=== PATIENT | female | born 1980 ===

== ENCOUNTER 2020-04-27 12:55 | Emergency (ER) | payer OTHER, SELFPAY ==
--- NOTE | 2020-04-27 13:27 | PC.NURSE ---
Pt cooperative w/ care, changeover complete. Crisis process explained to pt.
[2020-04-27 13:28] VITALS: BP 156/110; PULSE 100; RESP 20; TEMP 37.1; O2SAT 100; BMI 21.5
--- NOTE | 2020-04-27 13:40 | PC.NURSE ---
Pt alert, speech pressured, hyperverbal, appears preoccupied w/ ex , states that there exwife has a restraining order on her.
[2020-04-27 14:00] VITALS: RESP 20
--- NOTE | 2020-04-27 14:08 | PC.NURSE ---
CARE team in w/ pt. Labs drawn.
[2020-04-27 14:13] LABS: MANUAL DIFF FLAG NO
[2020-04-27 14:14] LABS: Basophils Percent Auto 0.3 % (0-2); Eosinophils Absolute Auto 0.1 X10*3/uL (0.0-0.4); Hemoglobin 13.7 g/dl (12.0-16.0); Imm Gran Abs Auto 0.04 X10*3/uL (0.00-0.03); Imm Gran Pct Auto 0.4 % (0.0-0.4); Lymphocytes Absolute Auto 2.8 X10*3/uL (1.2-4.9); Lymphocytes Percent Auto 26.4 % (20-40); Mean Corpuscular HGB Conc 34.3 g/dl (31.0-35.0); Mean Corpuscular Hemoglobin 33.8 pg (27.0-33.0); Mean Corpuscular Volume 98.8 fL (80-98); Mean Platelet Volume 10.1 fL (9.4-12.3); Monocytes Absolute Auto 0.8 X10*3/uL (0.1-1.2); Monocytes Percent Auto 7.7 % (2-11); Neutrophils Absolute Auto 6.9 X10*3/uL (2.0-8.3); Neutrophils Percent Auto 64.2 % (45-73); Platelet Count 267 X10*3/uL (160-400); Red Blood Count 4.05 X10*6/uL (4.20-5.50); Red Cell Distribution Width 13.2 % (11.0-16.0); White Blood Count 10.8 X10*3/uL (4.8-10.8)
[2020-04-27 14:15] LABS: UPreg QC Valid YES; Urine Pregnancy NEGATIVE (NEGATIVE)
[2020-04-27 14:40] LABS: Amphetamine Screen Urine Not Detected (Not Detect); Barbiturates, Urine Not Detected (Not Detect); Benzodiazepines Screen Urine Not Detected (Not Detect); Cannabinoid Screen Urine Not Detected (Not Detect); Cocaine Screen Urine Not Detected (Not Detect); Opiate Screen Urine Not Detected (Not Detect); Phencyclidine Screen Urine Not Detected (Not Detect)
--- NOTE | 2020-04-27 14:44 | ED_ITS ---
HPI - Psych General Chief Complaint: Psychiatric Symptoms Stated Complaint: crisis Time Seen by Provider: 04/27/20 13:44 Source: EMS Mode of arrival: EMS Limitations: no limitations History of Present Illness HPI Narrative: 40-year-old female with a past medical history of PTSD and depression here with reports SI. Patient tells me that she made vague suicidal statements to her family because no one was listening to her. She denies SI now. Denies HI her hallucinations. She tells me she had a divorce with her 1 year ago and since then she has been struggling with a relationship. She tells me her has restraining order against her and this frustrates her. She tells me about different movie she lies, different long she likes. She tells me that she is a person of importance. That her family is very well known and very prominent (her parents founded her town, her uncle was on the cover of [employer]). She tells me she is also friends with people of importance. 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 Patient has rambling speech and is difficult to redirect. No physical complaints. MD complaint: suicidal ideation Onset (ago): hour(s) Duration: intermittent History of same: Yes Relieving factors: none Exacerbating factors: none Associated symptoms: denies other symptoms Treatments prior to arrival: none Related Data Allergies Allergy/AdvReac Type Severity Reaction Status Date / Time OYSTERS Allergy Unknown UNKNOWN Uncoded 01/05/20 18:19 Review of Systems Review of Systems: Yes all other systems are reviewed and are negative Constitutional: Constitutional: Reports no additional constitutional complaints, Denies body ache(s), Denies chills, Denies fever(s), Denies headache(s) and Denies weakness Eyes: Eyes: Reports no additional eye complaints and Denies change in vision ENT: Reports system reviewed and no additional complaints, except as documented, Denies dizziness, Denies headache(s), Denies nasal congestion, Denies nasal discharge and Denies neck pain Cardiovascular: Cardiovascular: Reports no additional cardiovascular complaints, Denies chest pain, Denies leg edema and Denies dyspnea Respiratory: Respiratory: Reports no additional respiratory complaints, Denies cough and Denies dyspnea Gastrointestinal: Gastrointestinal: Reports no additional gastrointestinal complaints, Denies abdominal pain, Denies diarrhea, Denies nausea and Denies vomiting Genitourinary: Genitourinary: Reports no additional female genitourinary complaints and Denies urinary incontinence Musculoskeletal: Musculoskeletal: Reports no additional musculoskeletal complaints, Denies back pain, Denies arthralgias, Denies joint swelling, Denies neck pain, Denies numbness and Denies tingling Integumentary/Breasts: Skin/Breast: Reports system reviewed and no additional complaints, except as docu and Denies rash Neurologic: Reports system reviewed and no additional complaints, except as documented, Denies Abnormal speech present, Denies dizziness, Denies headache(s), Denies numbness, Denies tingling and Denies weakness Psychiatric: Psychiatric: Reports anxiety, Denies depression, Denies visual hallucinations, Denies hallucinations, Denies tactile hallucinations, Denies homicidal ideation and Denies suicidal ideation [facility] Past Medical History Attestation statement: The following information was validated with the patient. Source: old records reviewed and nursing notes reviewed Medical History (Updated 04/27/20 @ 16:37 by Michelle Fernandez NP) Depression Knee cap dislocation PTSD (post-traumatic stress disorder) Social History Social History Advance Directives: No Advance Directives Information Provided: No Physical Exam Vital Signs: Vital Signs: Last Vital Signs Temp 98.7 F 04/27/20 13:28 Pulse 103 H 04/27/20 15:22 Resp 20 04/27/20 15:22 BP 122/83 04/27/20 15:22 Pulse Ox 97 04/27/20 15:22 Body Mass Index 21.5 Const: General: cooperative, healthy appearing, comfortable and no acute distress Orientation/consciousness: patient oriented x3 Limitations: no limitations HENMT: Head: Yes normal to inspection Ears: hearing grossly normal bilaterally General nose exam: Normal external nose present Face and sinus: Yes normal facial exam Mouth: Normal oral and palatal mucosa present Throat: Yes posterior oropharynx normal Eyes: General: appearance normal, both eyes and all related structures Pupils: Equal, round and reactive pupils present Neck: Neck: Yes normal visual inspection Chest: Chest palpation & inspection: normal inspection of the chest Resp: Effort & Inspection: normal respiratory effort Auscultation: clear to auscultation bilaterally Cardio: Rate: regular rate Rhythm: regular rhythm Peripheral pulses: Peripheral pulses 2+ throughout GI: Inspection: Yes normal to inspection Palpation (GI): Soft to palpation and nontender Auscultation: normal bowel sounds Back/Spine/Pelvis: Thoracic/Lumbar Spine: thoracic and lumbar spine normal to inspection Skin: General skin exam: no rashes or lesions noted Neuro: Other: Rambling speech General: patient oriented x3, no focal motor deficits and normal sensation to monofilament Cranial nerves: Yes Equal, round and reactive pupils present Speech: No Abnormal speech present Gait exam (Neuro): Normal gait present Motor exam (neuro): 5/5 motor strength present throughout Extrem: General: Yes normal to inspection Course Course Course Narrative: 40-year-old female with a past medical history PTSD and depression here with vague SI reported to family. The patient denies suicidal thoughts now. She does note that she did this to get attention. On arrival the patient has rambling speech, grandiose thoughts, narcissistic behavior, very anxious, unable to sit still. Will check labs, toxicology. No physical complaints. No concern for acute ingestion or trauma. 1430-patient was seen by the care team and recommendation for formal N evaluation. 1700-Sign out to Art TEXT TRANSCRIBER pending above. MDM - Psych Restraints Face to Face Assessment: Face to Face Assessment: Current Situation: After assessment of the patient, a review of the pertinent medical record and a discussion with nursing staff, I feel the patient requires a restrain intervention. Reaction To: [] Medical Condition: [] Behavioral State: [] Continued Need: [] Medical Records Attestation: I reviewed the patient's medical records. Lab Data Attestation: I reviewed the patient's lab results. Result diagrams: 04/27/20 14:07 04/27/20 14:07 Labs: Lab Results 04/27/20 04/27/20 04/27/20 Range/Units 13:58 13:58 14:07 WBC 10.8 (4.8-10.8) X10*3/uL RBC 4.05 L (4.20-5.50) X10*6/uL Hgb 13.7 (12.0-16.0) g/dl Hct 40.0 (37-47) % MCV 98.8 H (80-98) fL MCH 33.8 H (27.0-33.0) pg MCHC 34.3 (31.0-35.0) g/dl RDW 13.2 (11.0-16.0) % Plt Count 267 (160-400) X10*3/uL MPV 10.1 (9.4-12.3) fL Immature Gran % (Auto) 0.4 (0.0-0.4) % Neut % (Auto) 64.2 (45-73) % Lymph % (Auto) 26.4 (20-40) % [place] % (Auto) 7.7 (2-11) % Eos % (Auto) 1.0 (0-4) % Baso % (Auto) 0.3 (0-2) % Lymph # (Auto) 2.8 (1.2-4.9) X10*3/uL [place] # (Auto) 0.8 (0.1-1.2) X10*3/uL Eos # (Auto) 0.1 (0.0-0.4) X10*3/uL Baso # (Auto) 0.0 (0.0-0.2) X10*3/uL Abs Immat Gran (auto) 0.04 H (0.00-0.03) X10*3/uL Absolute Neuts (auto) 6.9 (2.0-8.3) X10*3/uL Absolute Nucleated RBC 0.000 (0.0-0.012) X10*3/uL Nucleated RBC % (auto) 0.0 (0.0-0.2) /100WBC Sodium (135-145) mmol/L Potassium (3.3-5.1) mmol/l Chloride (96-108) mmol/L Carbon Dioxide (22-29) mmol/L Anion Gap (12-20) BUN (9-16) mg/dL Creatinine (0.5-1.4) mg/dL Estim Creat Clear Calc Estimated GFR Random Glucose (60-115) mg/dL Calcium (8.4-10.2) mg/dL Total Bilirubin (0.0-1.0) mg/dL AST (5-31) U/L ALT (0-31) U/L Alkaline Phosphatase (39-117) U/L Total Protein (6.5-8.0) g/dL Albumin (3.5-5.0) g/dL Urine Test NEGATIVE (NEGATIVE) Salicylates (15-30) mg/dL Urine Opiates Screen Not Detected (Not Detect) Acetaminophen (<30) mcg/mL Ur Barbiturates Screen Not Detected (Not Detect) Ur Phencyclidine Scrn Not Detected (Not Detect) Ur Amphetamines Screen Not Detected (Not Detect) U Benzodiazepines Scrn Not Detected (Not Detect) Urine Cocaine Screen Not Detected (Not Detect) U Marijuana (THC) Screen Not Detected (Not Detect) Ethyl Alcohol mg/dL 04/27/20 04/27/20 Range/Units 14:07 14:07 WBC (4.8-10.8) X10*3/uL RBC (4.20-5.50) X10*6/uL Hgb (12.0-16.0) g/dl Hct (37-47) % MCV (80-98) fL MCH (27.0-33.0) pg MCHC (31.0-35.0) g/dl RDW (11.0-16.0) % Plt Count (160-400) X10*3/uL MPV (9.4-12.3) fL Immature Gran % (Auto) (0.0-0.4) % Neut % (Auto) (45-73) % Lymph % (Auto) (20-40) % [place] % (Auto) (2-11) % Eos % (Auto) (0-4) % Baso % (Auto) (0-2) % Lymph # (Auto) (1.2-4.9) X10*3/uL [place] # (Auto) (0.1-1.2) X10*3/uL Eos # (Auto) (0.0-0.4) X10*3/uL Baso # (Auto) (0.0-0.2) X10*3/uL Abs Immat Gran (auto) (0.00-0.03) X10*3/uL Absolute Neuts (auto) (2.0-8.3) X10*3/uL Absolute Nucleated RBC (0.0-0.012) X10*3/uL Nucleated RBC % (auto) (0.0-0.2) /100WBC Sodium 135 (135-145) mmol/L Potassium 4.5 (3.3-5.1) mmol/l Chloride 99 (96-108) mmol/L Carbon Dioxide 24 (22-29) mmol/L Anion Gap 17 (12-20) BUN 6 L (9-16) mg/dL Creatinine 0.66 (0.5-1.4) mg/dL Estim Creat Clear Calc 121.6 Estimated GFR > 60 Random Glucose 89 (60-115) mg/dL Calcium 9.4 (8.4-10.2) mg/dL Total Bilirubin 0.6 (0.0-1.0) mg/dL AST 14 (5-31) U/L ALT 11 (0-31) U/L Alkaline Phosphatase 57 (39-117) U/L Total Protein 7.5 (6.5-8.0) g/dL Albumin 4.9 (3.5-5.0) g/dL Urine Test (NEGATIVE) Salicylates < 5.0 L (15-30) mg/dL Urine Opiates Screen (Not Detect) Acetaminophen < 1 (<30) mcg/mL Ur Barbiturates Screen (Not Detect) Ur Phencyclidine Scrn (Not Detect) Ur Amphetamines Screen (Not Detect) U Benzodiazepines Scrn (Not Detect) Urine Cocaine Screen (Not Detect) U Marijuana (THC) Screen (Not Detect) Ethyl Alcohol 32 mg/dL Discharge Plan Discharge Clinical Impression: Adjustment disorder
[2020-04-27 14:50] LABS: Ethanol 32 mg/dL
[2020-04-27 14:54] LABS: Acetaminophen LAB < 1 mcg/mL (<30)
[2020-04-27 14:55] LABS: Alanine Aminotransferase 11 U/L (0-31); Albumin Level 4.9 g/dL (3.5-5.0); Alkaline Phosphatase 57 U/L (39-117); Anion Gap 17 (12-20); Aspartate Amino Transferase 14 U/L (5-31); Bilirubin Total 0.6 mg/dL (0.0-1.0); Blood Urea Nitrogen 6 mg/dL (9-16); Calcium 9.4 mg/dL (8.4-10.2); Carbon Dioxide 24 mmol/L (22-29); Chloride 99 mmol/L (96-108); Creatinine Clr Calc Pharmacy 121.6; Estimated Glomerular Filt Rate > 60; Glucose Random 89 mg/dL (60-115); Potassium 4.5 mmol/l (3.3-5.1); Salicylate < 5.0 mg/dL (15-30); Sodium 135 mmol/L (135-145); Total Protein 7.5 g/dL (6.5-8.0)
--- NOTE | 2020-04-27 14:59 | PC.NURSE ---
KATHY faxed and called
[2020-04-27 15:22] VITALS: BP 122/83; PULSE 103; RESP 20; O2SAT 97
--- NOTE | 2020-04-27 15:45 | PC.NURSE ---
pt out in [facility], conversing w/ staff; appears less agitated, occasionally preoccupied with ex .
[2020-04-27 16:00] VITALS: RESP 18
[2020-04-27] MEDS: Nicotine 21 MG PATCH.TD24 TRANSDERMA (16:05)
[2020-04-27 18:00] VITALS: RESP 20
--- NOTE | 2020-04-27 18:16 | PC.NURSE ---
[facility] in to evaluate
--- NOTE | 2020-04-27 19:29 | PC.NURSE ---
Report received. Pt pacing the unit. Awaiting disposition plan.
--- NOTE | 2020-04-27 20:07 | MHC.CARE ---
Per Kamilla from [facility] crisis, pt will be an involuntary inpt bedsearch. Section 12 is in chart.
[2020-04-27 21:06] VITALS: BP 135/86; PULSE 100; RESP 20; TEMP 36.6; O2SAT 99
--- NOTE | 2020-04-27 21:07 | PC.NURSE ---
Previously agitated when N told pt she was a section 12 bed search. Pt declined ativan when offered, was able to settle on her own. Currently resting in bed. Calm, cooperative.
--- NOTE | 2020-04-27 22:47 | PC.NURSE ---
Pt currently resting in bed, no complaints at this time.
--- NOTE | 2020-04-27 23:34 | PC.NURSE ---
Report received. PT is resting in bed quietly. Calm and cooperative. PT is inpatient bed search.
[2020-04-28 00:22] VITALS: BP 124/83; PULSE 98; RESP 18; TEMP 36.2; O2SAT 98
--- NOTE | 2020-04-28 00:50 | PC.NURSE ---
PT is standing at nurse's station talking about various topics. Speech is not pressured, activity level and behavior appears normal. PT stated she is focused on getting her back, which is why she is here.
[2020-04-28 06:29] VITALS: BP 142/79; PULSE 80; RESP 18; TEMP 36.6; O2SAT 98
--- NOTE | 2020-04-28 07:01 | PC.NURSE ---
Report received. Pt currently eating breakfast, denies complaints. Pt is inpatient bedsearch.
[2020-04-28 10:00] VITALS: BP 121/80; PULSE 84; RESP 18; TEMP 36.8; O2SAT 97
== END 2020-04-28 15:09 | disposition home or self-care (01) ==
PROVIDERS: Emergency Provider Emergency Medicine; PCP Family Medicine
DX: F33.1 Major depressive disorder, recurrent, moderate (principal); R45.851 Suicidal ideations; F43.20 Adjustment disorder, unspecified; F43.10 Post-traumatic stress disorder, unspecified; Z79.899 Other long term (current) drug therapy
CPT/HCPCS: 80053; 80307; 80320; 81025; 85025; 99284; G0480

== ENCOUNTER 2021-11-26 08:17 | Emergency (ER) | payer MEDICAID, SELFPAY ==
[2021-11-26 08:24] VITALS: BP 155/108; PULSE 120; RESP 20; TEMP 36.3; O2SAT 95; BMI 22.8
[2021-11-26 08:33] VITALS: BP 143/87
--- NOTE | 2021-11-26 08:52 | ED.PSYCH ---
HPI - Psych General Chief Complaint: Psychiatric Symptoms Stated Complaint: Crisis Time Seen by Provider: 11/26/21 08:33 Source: patient Mode of arrival: ambulatory Limitations: no limitations History of Present Illness HPI Narrative: 41-year-old female with history of PTSD, anxiety presents with anxiety, difficulty sleeping, racing thoughts especially at night time. Patient self medicating with alcohol drinking up to 16 beers per day. No additional substance use. No suicidal or homicidal ideations. Patient tells me she does have a therapist but she has pain out of pocket for this. She does not currently have insurance. She is not on any medications currently. No physical complaints. Related Data Allergies Allergy/AdvReac Type Severity Reaction Status Date / Time OYSTERS Allergy Unknown UNKNOWN Uncoded 01/05/20 18:19 Review of Systems Review of Systems: Yes all other systems are reviewed and are negative Constitutional: Constitutional: Reports no additional constitutional complaints, Denies body ache(s), Denies chills, Denies fever(s), Denies headache(s) and Denies weakness Eyes: Eyes: Reports no additional eye complaints and Denies change in vision ENT: Reports system reviewed and no additional complaints, except as documented, Denies dizziness, Denies headache(s), Denies nasal congestion, Denies nasal discharge and Denies neck pain Cardiovascular: Cardiovascular: Reports no additional cardiovascular complaints, Denies chest pain, Denies leg edema and Denies dyspnea Respiratory: Respiratory: Reports no additional respiratory complaints, Denies cough and Denies dyspnea Gastrointestinal: Gastrointestinal: Reports no additional gastrointestinal complaints, Denies abdominal pain, Denies diarrhea, Denies nausea and Denies vomiting Genitourinary: Genitourinary: Reports no additional female genitourinary complaints and Denies urinary incontinence Musculoskeletal: Musculoskeletal: Reports no additional musculoskeletal complaints, Denies back pain, Denies arthralgias, Denies joint swelling, Denies neck pain, Denies numbness and Denies tingling Integumentary/Breasts: Skin/Breast: Reports system reviewed and no additional complaints, except as docu and Denies rash Neurologic: Reports system reviewed and no additional complaints, except as documented, Denies Abnormal speech present, Denies dizziness, Denies headache(s), Denies numbness, Denies tingling and Denies weakness Psychiatric: Psychiatric: Reports anxiety, Reports depression, Denies homicidal ideation and Denies suicidal ideation PMFSH Past Medical History Attestation statement: The following information was validated with the patient. Source: old records reviewed and nursing notes reviewed Medical History Depression Knee cap dislocation PTSD (post-traumatic stress disorder) Social History Social History Advance Directives: No Advance Directives Information Provided: No Physical Exam Vital Signs: Vital Signs: Last Vital Signs Temp 97.4 F 11/26/21 08:24 Pulse 120 H 11/26/21 08:24 Resp 20 11/26/21 08:24 BP 143/87 H 11/26/21 08:33 Pulse Ox 95 11/26/21 08:24 O2 Del Method 11/26/21 08:24 BMI result Body Mass Index 22.8 Const: General: cooperative, healthy appearing, comfortable and no acute distress Orientation/consciousness: patient oriented x3 Limitations: no limitations HEENT: Head: Yes normal to inspection Ears: hearing grossly normal bilaterally General nose exam: Normal external nose present Face and sinus: Yes normal facial exam Mouth: Normal oral and palatal mucosa present Throat: Yes posterior oropharynx normal Eyes: General: appearance normal, both eyes and all related structures Pupils: Equal, round and reactive pupils present Neck: Neck: Yes normal visual inspection Chest: Chest palpation & inspection: normal inspection of the chest Resp: Effort & Inspection: normal respiratory effort Auscultation: clear to auscultation bilaterally Cardio: Rate: regular rate Rhythm: regular rhythm Peripheral pulses: Peripheral pulses 2+ throughout GI: Inspection: Yes normal to inspection Palpation (GI): Soft to palpation and nontender Auscultation: normal bowel sounds Back/Spine/Pelvis: Thoracic/Lumbar Spine: thoracic and lumbar spine normal to inspection Skin: General skin exam: no rashes or lesions noted Neuro: General: patient oriented x3, no focal motor deficits and normal sensation to monofilament Cranial nerves: Yes CN's II-XII intact bilaterally and Yes Equal, round and reactive pupils present Cognition (Neuro): normal cognition Speech: No Abnormal speech present Gait exam (Neuro): Normal gait present Motor exam (neuro): 5/5 motor strength present throughout Extrem: General: Yes normal to inspection Course Course Course Narrative: Patient was seen by Apolinar from care team as well as Amelia pop. Plan for outpatient referral to partial MDM - Psych MDM Narrative Medical decision making narrative: 41-year-old female with a history of anxiety, PTSD, depression, presents with increasing anxiety, depression, racing thoughts self medicating with alcohol. Patient is not have insurance. Paying out of pocket for therapist. Not currently on medication. Seeking help. No SI or HI. No concern for acute ingestion or trauma. Patient will need labs, drug screen, crisis evaluation Medical Records Attestation: I reviewed the patient's medical records. Lab Data Attestation: I reviewed the patient's lab results. Result diagrams: 11/26/21 09:09 11/26/21 09:09 Labs: Lab Results 11/26/21 11/26/21 11/26/21 Range/Units 08:36 08:36 09:09 WBC 5.7 (4.8-10.8) X10*3/uL RBC 3.67 L (4.20-5.50) X10*6/uL Hgb 12.3 (12.0-16.0) g/dl Hct 35.7 L (37.0-47.0) % MCV 97.3 (80.0-98.0) fL MCH 33.5 H (27.0-33.0) pg MCHC 34.5 (31.0-35.0) g/dl RDW 12.7 (11.0-16.0) % Plt Count 197 (160-400) X10*3/uL MPV 9.8 (9.4-12.3) fL Immature Gran % (Auto) 0.2 (0.0-0.4) % Neut % (Auto) 49.9 (45-73) % Lymph % (Auto) 40.0 (20-40) % [place] % (Auto) 6.7 (2-11) % Eos % (Auto) 2.7 (0-4) % Baso % (Auto) 0.5 (0-2) % Lymph # (Auto) 2.3 (1.2-4.9) X10*3/uL [place] # (Auto) 0.4 (0.1-1.2) X10*3/uL Eos # (Auto) 0.2 (0.0-0.4) X10*3/uL Baso # (Auto) 0.0 (0.0-0.2) X10*3/uL Abs Immat Gran (auto) 0.01 (0.00-0.03) X10*3/uL Absolute Neuts (auto) 2.8 (2.0-8.3) x10*3/uL Absolute Nucleated RBC 0.000 (0.0-0.012) X10*3/uL Nucleated RBC % (auto) 0.0 (0.0-0.2) /100WBC Sodium (135-145) mmol/L Potassium (3.3-5.1) mmol/L Chloride (96-108) mmol/L Carbon Dioxide (22-29) mmol/L Anion Gap (12-20) BUN (9-16) mg/dL Creatinine (0.5-1.4) mg/dL Estim Creat Clear Calc Estimated GFR Random Glucose (60-115) mg/dL Calcium (8.4-10.2) mg/dL Total Bilirubin (0.0-1.0) mg/dL Direct Bilirubin (0.0-0.5) mg/dL AST (5-31) U/L ALT (0-31) U/L Alkaline Phosphatase (39-117) U/L Total Protein (6.5-8.0) g/dL Albumin (3.5-5.0) g/dL Ethyl Alcohol 117 mg/dL COVID-19 (ANOOP) Negative (Negative) COVID-19 Clin Com See Note 11/26/21 Range/Units 09:09 WBC (4.8-10.8) X10*3/uL RBC (4.20-5.50) X10*6/uL Hgb (12.0-16.0) g/dl Hct (37.0-47.0) % MCV (80.0-98.0) fL MCH (27.0-33.0) pg MCHC (31.0-35.0) g/dl RDW (11.0-16.0) % Plt Count (160-400) X10*3/uL MPV (9.4-12.3) fL Immature Gran % (Auto) (0.0-0.4) % Neut % (Auto) (45-73) % Lymph % (Auto) (20-40) % [place] % (Auto) (2-11) % Eos % (Auto) (0-4) % Baso % (Auto) (0-2) % Lymph # (Auto) (1.2-4.9) X10*3/uL [place] # (Auto) (0.1-1.2) X10*3/uL Eos # (Auto) (0.0-0.4) X10*3/uL Baso # (Auto) (0.0-0.2) X10*3/uL Abs Immat Gran (auto) (0.00-0.03) X10*3/uL Absolute Neuts (auto) (2.0-8.3) x10*3/uL Absolute Nucleated RBC (0.0-0.012) X10*3/uL Nucleated RBC % (auto) (0.0-0.2) /100WBC Sodium 141 (135-145) mmol/L Potassium 4.6 (3.3-5.1) mmol/L Chloride 107 (96-108) mmol/L Carbon Dioxide 21 L (22-29) mmol/L Anion Gap 18 (12-20) BUN 4 L (9-16) mg/dL Creatinine 0.67 (0.5-1.4) mg/dL Estim Creat Clear Calc 115.4 Estimated GFR > 60 Random Glucose 99 (60-115) mg/dL Calcium 8.9 (8.4-10.2) mg/dL Total Bilirubin 0.4 (0.0-1.0) mg/dL Direct Bilirubin 0.2 (0.0-0.5) mg/dL AST 25 D (5-31) U/L ALT 14 (0-31) U/L Alkaline Phosphatase 49 (39-117) U/L Total Protein 6.9 (6.5-8.0) g/dL Albumin 4.4 (3.5-5.0) g/dL Ethyl Alcohol mg/dL COVID-19 (ANOOP) (Negative) COVID-19 Clin Com Discharge Plan Discharge Clinical Impression: Depression Patient Disposition: Home, Self-Care Instructions: Depression (ED) Additional Instructions: Follow-up with outpatient referral for partial Referrals: Ana Cosby MD [Primary Care Provider] - 1 week (only as needed)
[2021-11-26 08:53] LABS: Ethanol 117 mg/dL
[2021-11-26 08:56] LABS: COVID-19 Test Negative (Negative)
[2021-11-26 09:12] LABS: MANUAL DIFF FLAG NO
[2021-11-26 09:13] LABS: Basophils Percent Auto 0.5 % (0-2); Eosinophils Absolute Auto 0.2 X10*3/uL (0.0-0.4); Eosinophils Percent Auto 2.7 % (0-4); Hematocrit 35.7 % (37.0-47.0); Hemoglobin 12.3 g/dl (12.0-16.0); Imm Gran Abs Auto 0.01 X10*3/uL (0.00-0.03); Imm Gran Pct Auto 0.2 % (0.0-0.4); Lymphocytes Absolute Auto 2.3 X10*3/uL (1.2-4.9); Mean Corpuscular HGB Conc 34.5 g/dl (31.0-35.0); Mean Corpuscular Hemoglobin 33.5 pg (27.0-33.0); Mean Corpuscular Volume 97.3 fL (80.0-98.0); Mean Platelet Volume 9.8 fL (9.4-12.3); Monocytes Absolute Auto 0.4 X10*3/uL (0.1-1.2); Monocytes Percent Auto 6.7 % (2-11); Neutrophils Absolute Auto 2.8 x10*3/uL (2.0-8.3); Neutrophils Percent Auto 49.9 % (45-73); Platelet Count 197 X10*3/uL (160-400); Red Blood Count 3.67 X10*6/uL (4.20-5.50); Red Cell Distribution Width 12.7 % (11.0-16.0); White Blood Count 5.7 X10*3/uL (4.8-10.8)
[2021-11-26 09:51] LABS: Alanine Aminotransferase 14 U/L (0-31); Albumin Level 4.4 g/dL (3.5-5.0); Alkaline Phosphatase 49 U/L (39-117); Anion Gap 18 (12-20); Aspartate Amino Transferase 25 U/L (5-31); Bilirubin Direct 0.2 mg/dL (0.0-0.5); Bilirubin Total 0.4 mg/dL (0.0-1.0); Blood Urea Nitrogen 4 mg/dL (9-16); Calcium 8.9 mg/dL (8.4-10.2); Carbon Dioxide 21 mmol/L (22-29); Chloride 107 mmol/L (96-108); Creatinine Clr Calc Pharmacy 115.4; Estimated Glomerular Filt Rate > 60; Glucose Random 99 mg/dL (60-115); Potassium 4.6 mmol/L (3.3-5.1); Sodium 141 mmol/L (135-145); Total Protein 6.9 g/dL (6.5-8.0)
--- NOTE | 2021-11-26 11:46 | MHC.CARE ---
Pt is a 41 y/o, , Citizen [place] speaking, female who is previously unknown to the CARE Team.? Today, pt presented to the ED with complaints of anxiety, depression, and alcohol use.? Pt sites significant life stressors including trauma, financial concerns, and family discord.? Pt has been medically cleared and is being assessed by the CARE Team to determine appropriate treatment recommendations. Pt has one prior inpt hospitalization at this facility in 2019. She is not on any medication and has not been for a long period of time due to being unable to meet the financial obligation.? Past documented hx of Major Depressive disorder.? Current, daily user of alcohol.? Pt is alert and oriented x4 and is screened for risk in the [facility] room of the ED.? She is tearful and appears older than her stated age.? She appears neat and well groomed.? She is engaged in the assessment and is help seeking, describing feelings of anxiety, depression, and feeling overwhelmed by her present life circumstances.? Her speech and eye contact are unremarkable.? She reports being unable to sleep and has tried many different methods of obtaining sleep such as melatonin and Benadryl, among others.? Presently, she is using alcohol to get to sleep but reports that it is only moderately effective.? She reports fair appetite.? Her affect most often is tearful and desperate.? She denies AVH, SI, HI, and self-harm urges.? Insight, memory, concentration and impulse control appear good.? Judgement appears fair. Pt expressed a desire to stop her alcohol use, noting that she cannot continue to consume alcohol in this manner on a daily basis. She expressed an interest in Recovery resources. Pt describes her lack of insurance as a major nini to her getting the care she needs.? CARE Team will work with financial counseling to secure insurance.? Financial Counseling was able to secure [employer] Coverage. CARE Team has requested that the Recovery team speak with pt regarding her alcohol use and resources that may be available to her. CARE Team will refer pt to [facility]. Pt does not appear to be at risk at this time.
--- NOTE | 2021-11-26 11:56 | MHC.RECOVRN ---
Met with pt in [id number] to discuss alcohol use. Pt tearful, states I don't want to do this anymore. I'm sick and tired of being so tired. I don't feel good. Pt reports drinking off an on x 3 years since my left. Currently, pt reports drinking 16 beers daily, last drink yesterday. Pt does not appear to be experiencing withdrawal symptoms. Pt denies hx ATS. Pt states It's part of the cycle, I drink to fall asleep after working nights. Pt vague historian, states I lost memory with PTSD and even more with ECT. Pt reports hx disulfiram with success, is interested in [facility]. Discussed CCC with pt, pt open to appt with Willa Reyes APRN. Intake appt scheduled for 11/27 at 10:30AM. CARE Team aware.
--- NOTE | 2021-11-27 15:22 | MHC.CARE ---
CARE Team calls pt x2 for follow up; VM left.
== END 2021-11-26 11:55 | disposition home or self-care (01) ==
PROVIDERS: Nurse Practitioner Family; Emergency Provider Student in an Organized Health Care Education/Training Program; PCP Family Medicine
DX: F32.A Depression, unspecified (principal); F41.9 Anxiety disorder, unspecified; F43.10 Post-traumatic stress disorder, unspecified; Z20.822 Contact with and (suspected) exposure to COVID-19; F10.988 Alcohol use, unspecified with other alcohol-induced disorder; Y90.5 Blood alcohol level of 100-119 mg/100 ml; F17.210 Nicotine dependence, cigarettes, uncomplicated
CPT/HCPCS: 36415; 80048; 80076; 82077; 85025; 87635; 99283; 99285

== ENCOUNTER → 2021-11-27 10:33 | Outpatient (BNVA) | payer MEDICAID, SELFPAY | PROVIDERS: PCP Family Medicine; Visit Provider Nurse Practitioner Psychiatric/Mental Health | DX: F10.20 Alcohol dependence, uncomplicated (principal) | CPT/HCPCS: 99212 ==

== ENCOUNTER 2021-11-27 23:38 | Inpatient (IN) | payer MEDICAID, OTHER, SELFPAY ==
[2021-11-27 23:45] VITALS: BMI 26.6
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
[2021-11-28] VITALS (10 sets, daily range): BP systolic 121–158; BP diastolic 86–98; PULSE 87–139; RESP 16–18; TEMP 36.5–37.4; O2SAT 95–98
[2021-11-28] MEDS: Ziprasidone Mesylate 20 MG VIAL IM (00:10)
[2021-11-28] MEDS: diphenhydrAMINE HCL 50 MG/ML VIAL IM (00:10)
[2021-11-28] MEDS: Haloperidol Lactate 5 MG/ML VIAL IM (00:10)
[2021-11-28 00:52] LABS: COVID-19 Test Negative (Negative)
--- NOTE | 2021-11-28 05:59 | PC.NURSE ---
Patient slept though the night, no distress observed/reported, at time of arrival to the ED POD patient was extremely agitated, tearful, loud and disruptive, cursing her own life, refused foreign exchange position clerk process, non [id number], verbally abusive towards staff member, provider notified/ordered Benadryl 50 mg IM, Geodon 20 mg IM, and Haldol 5 mg IM/administered as ordered/complaint/with + effect, disposition per [facility] from community is section 12 A, inpatient bed search, patient is asymptomatic of withdrawal at this time, BP 142/95, HR 98 @ 0544, patient is calm refused to changeover at this time, will continue to monitor.
[2021-11-28 07:52] LABS: Appearance Urine CLEAR; Color Urine YELLOW; Glucose Urine UA NEG (NEG); Leukocyte Esterase Urine NEG (NEG); Nitrite Urine NEG (NEG); PH 5.5 (5.0-8.0); Specific Gravity - Urine >= 1.030 (1.005-1.025); Urine Blood NEG (NEG); Urine Ketones NEG (NEG); Urine Protein NEG (NEG-TRACE)
[2021-11-28 08:11] LABS: Amphetamine Screen Urine Not Detected (Not Detect); Barbiturates, Urine Not Detected (Not Detect); Benzodiazepines Screen Urine Not Detected (Not Detect); Cannabinoid Screen Urine Not Detected (Not Detect); Cocaine Screen Urine Not Detected (Not Detect); Fentanyl, urine Not Detected (Not Detect); Opiate Screen Urine Not Detected (Not Detect); Phencyclidine Screen Urine Not Detected (Not Detect)
--- NOTE | 2021-11-28 08:49 | PC.NURSE ---
Pt visibly anxious, pacing in the pod. States I've been trying to get help for my for 3 years now . Tearful, vague. States my anxiety is through the roof! Also asking about insurance-related questions. Reached out to Jolene Smiley (registration) via [email or web address]. Awaiting response. Pt remains Section 12, inpatient bedsearch.
--- NOTE | 2021-11-28 10:00 | PC.NURSE ---
CARLOSN speaking with patient at this time. Pt is tearful and occasionally pacing. Plan to draw labs, planned admission on M5 pending results.
[2021-11-28 10:10] LABS: MANUAL DIFF FLAG NO
[2021-11-28 10:11] LABS: Basophils Percent Auto 0.3 % (0-2); Eosinophils Absolute Auto 0.1 X10*3/uL (0.0-0.4); Hematocrit 34.8 % (37.0-47.0); Imm Gran Abs Auto 0.02 X10*3/uL (0.00-0.03); Imm Gran Pct Auto 0.3 % (0.0-0.4); Lymphocytes Absolute Auto 2.6 X10*3/uL (1.2-4.9); Lymphocytes Percent Auto 34.1 % (20-40); Mean Corpuscular HGB Conc 34.5 g/dl (31.0-35.0); Mean Corpuscular Hemoglobin 33.6 pg (27.0-33.0); Mean Corpuscular Volume 97.5 fL (80.0-98.0); Mean Platelet Volume 10.3 fL (9.4-12.3); Monocytes Absolute Auto 0.8 X10*3/uL (0.1-1.2); Monocytes Percent Auto 9.9 % (2-11); Neutrophils Absolute Auto 4.2 x10*3/uL (2.0-8.3); Neutrophils Percent Auto 54.4 % (45-73); Platelet Count 178 X10*3/uL (160-400); Red Blood Count 3.57 X10*6/uL (4.20-5.50); Red Cell Distribution Width 12.7 % (11.0-16.0); White Blood Count 7.8 X10*3/uL (4.8-10.8)
[2021-11-28 10:26] LABS: Anion Gap 16 (12-20); Blood Urea Nitrogen 7 mg/dL (9-16); Calcium 8.6 mg/dL (8.4-10.2); Carbon Dioxide 23 mmol/L (22-29); Chloride 101 mmol/L (96-108); Estimated Glomerular Filt Rate > 60; Glucose Random 125 mg/dL (60-115); Potassium 4.1 mmol/L (3.3-5.1); Sodium 136 mmol/L (135-145)
[2021-11-28] MEDS: hydrOXYzine HCL 25 MG TABLET PO ×2 (17:08→20:33)
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
[2021-11-28] MEDS: traZODone HCL 50 MG TABLET PO (20:33)
[2021-11-28] MEDS: Multivitamin TABLET 1 TAB PO (21:01)
[2021-11-28] MEDS: LORazepam 1 MG TABLET PO (21:01)
[2021-11-28] MEDS: Thiamine HCL 100 MG TABLET PO (21:01)
[2021-11-29] MEDS: Thiamine HCL 100 MG TABLET PO (08:11)
[2021-11-29] MEDS: Multivitamin TABLET 1 TAB PO (08:11)
[2021-11-29 08:25] VITALS: BP 146/88; PULSE 80; RESP 17; TEMP 36.3; O2SAT 97
[2021-11-29 10:07] LABS: Estimated Average Glucose 85 mg/dL; Hemoglobin A1c % 4.6 %
[2021-11-29 10:13] LABS: Cholesterol 181 mg/dL; HDL Cholesterol 96 mg/dL; LDL Cholesterol Calculated 65 mg/dl; Triglycerides 102 mg/dL
[2021-11-29 10:28] LABS: Free T4 (Free Thyroxine) 1.03 ng/dL (0.71-1.85); Thyroid Stimulating Hormone 1.78 uIU/mL (0.32-4.0)
[2021-11-29 10:49] LABS: Folate > 20.0 ng/mL (> or = 4.0); Vitamin B12 238 pg/mL (200-900)
[2021-11-29] MEDS: hydrOXYzine HCL 25 MG TABLET PO ×2 (13:10→20:24)
[2021-11-29] MEDS: Acetaminophen 325 MG TABLET 650 MG PO (15:52)
[2021-11-29 16:17] VITALS: BP 119/74; PULSE 114; RESP 14; TEMP 36.9
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
[2021-11-29] MEDS: OXcarbazepine 150 MG TABLET PO (20:24)
[2021-11-29] MEDS: traZODone HCL 50 MG TABLET PO ×2 (22:57→23:48)
[2021-11-30 05:48] VITALS: BP 122/67; PULSE 100; RESP 16; TEMP 36.1; O2SAT 99
[2021-11-30] MEDS: Multivitamin TABLET 1 TAB PO (08:10)
[2021-11-30] MEDS: Thiamine HCL 100 MG TABLET PO (08:10)
[2021-11-30] MEDS: OXcarbazepine 150 MG TABLET PO ×2 (08:10→22:21)
[2021-11-30] MEDS: Naltrexone HCl 50 MG TABLET PO (08:10)
[2021-11-30] MEDS: Acetaminophen 325 MG TABLET 650 MG PO ×2 (11:40→19:23)
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
[2021-11-30 18:00] VITALS: BP 143/65; PULSE 84; RESP 14; TEMP 37
[2021-11-30] MEDS: risperiDONE 1 MG TABLET PO (21:40)
[2021-11-30] MEDS: traZODone HCL 50 MG TABLET PO (21:40)
[2021-11-30] MEDS: Prazosin HCL 1 MG CAPSULE PO (21:40)
[2021-11-30] MEDS: diphenhydrAMINE HCL 25 MG TABLET 50 MG PO (22:38)
[2021-12-01 05:43] VITALS: BP 147/67; PULSE 84; RESP 16; TEMP 36.5; O2SAT 97
[2021-12-01] MEDS: OXcarbazepine 150 MG TABLET PO ×2 (08:20→22:30)
[2021-12-01] MEDS: Multivitamin TABLET 1 TAB PO (08:20)
[2021-12-01] MEDS: Thiamine HCL 100 MG TABLET PO (08:20)
[2021-12-01] MEDS: Naltrexone HCl 50 MG TABLET PO (08:21)
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
[2021-12-01] MEDS: Acetaminophen 325 MG TABLET 650 MG PO (15:50)
[2021-12-01 17:07] VITALS: BP 154/84; PULSE 104; RESP 18; O2SAT 98
[2021-12-01] MEDS: risperiDONE 2 MG TABLET PO (22:29)
[2021-12-01] MEDS: traZODone HCL 50 MG TABLET PO (22:30)
[2021-12-01] MEDS: Prazosin HCL 1 MG CAPSULE PO (22:30)
[2021-12-02 06:00] VITALS: BP 123/66; PULSE 76; RESP 15; TEMP 36.6; O2SAT 951
[2021-12-02] MEDS: OXcarbazepine 150 MG TABLET PO ×2 (09:22→22:26)
[2021-12-02] MEDS: Thiamine HCL 100 MG TABLET PO (09:22)
[2021-12-02] MEDS: Naltrexone HCl 50 MG TABLET PO (09:22)
[2021-12-02] MEDS: Multivitamin TABLET 1 TAB PO (09:22)
[2021-12-02] MEDS: risperiDONE 0.5 MG TABLET PO (11:30)
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
[2021-12-02] MEDS: Acetaminophen 325 MG TABLET 650 MG PO (18:42)
[2021-12-02 22:15] VITALS: BP 121/73; PULSE 88; TEMP 37.1
[2021-12-02] MEDS: Prazosin HCL 1 MG CAPSULE 2 MG PO (22:25)
[2021-12-02] MEDS: traZODone HCL 50 MG TABLET PO (22:26)
[2021-12-02] MEDS: risperiDONE 2 MG TABLET PO (22:26)
[2021-12-03] MEDS: traZODone HCL 50 MG TABLET PO (00:52)
[2021-12-03] MEDS: diphenhydrAMINE HCL 25 MG TABLET 50 MG PO (00:52)
[2021-12-03 06:00] VITALS: BP 126/74; PULSE 89; RESP 17; TEMP 36.6; O2SAT 97
[2021-12-03] MEDS: Thiamine HCL 100 MG TABLET PO (08:03)
[2021-12-03] MEDS: OXcarbazepine 150 MG TABLET PO (08:03)
[2021-12-03] MEDS: Naltrexone HCl 50 MG TABLET PO (08:03)
[2021-12-03] MEDS: Multivitamin TABLET 1 TAB PO (08:03)
[2021-12-03 08:41] VITALS: BP 126/74; PULSE 89; RESP 17; TEMP 36.6; O2SAT 99
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
--- NOTE | 2021-12-23 15:15 | P.DS_ITS ---
DS: Providers Provider Date of Service: 12/03/21 Date of admission: 11/28/21 16:23 Date of discharge: 12/03/21 Primary care physician: Unknown Physician Admitting clinician: Mckenna Crow Attending physician on admission: Davis Branham Attending physician on discharge: Davis Branham Discharging clinician: Mckenna Crow DS: Diagnosis Discharge Diagnosis (1) Delusional disorder: Status: Acute (2) PTSD (post-traumatic stress disorder): Status: Acute (3) Alcohol use disorder, severe, dependence: Status: Resolved DS: Medications Discharge Medications Home Medications: Previous Rx's Medication Instructions Recorded hydroxyzine HCl 25 mg tablet 25 mg PO Q6H PRN Anxiety 30 days 12/03/21 #60 tabs naltrexone 50 mg tablet 50 mg PO DAILY 30 days #30 tabs 12/03/21 oxcarbazepine 150 mg tablet 150 mg PO BID 30 days #60 tabs 12/03/21 prazosin 1 mg capsule 2 mg PO BEDTIME 30 days #60 caps 12/03/21 risperidone 2 mg tablet 2 mg PO BEDTIME 30 days #30 tabs 12/03/21 trazodone 50 mg tablet 50 mg PO BEDTIME PRN Insomnia 30 12/03/21 days #30 tabs Mental Status Exam Mental Status Exam Narrative: Appearance: casually groomed, fair hygiene in NAD Behavior:somewhat guarded psychomotor: no agitation or retardation noted Speech:clear, normal rate/rhythm/volume, spontaneous Thought process:mostly linear, tangential at times but no loose associations Thought content:feels as if no one cares about her, blames others for her misfortunes, no SI. Mood: frustrated Affect: congruent, dysphoric but no overt s/s of hypomania or sree SI:adamantly denies HI:none VH/AH:none Delusions:none Insight/judgment:poor x 2. Memory/cog: alert, oriented x 3. DS: Summary Hospital Course Hospital Course: Admission to adult psychiatry for exacerbation of PTSD and delusional disorder. Risperdal, Trileptal, Prazosin, Trazodone were initiated along with Naltrexone and Hydroxyzine prn. Sonja is processing the loss of a relationship which is complex and has several aspects which she does not understand. She has a long history of complex trauma, dissociative identity symptoms, where, she describes at one time when in her 30's spent ~6 months regressed and in the mindset of a young child during a hospitalization. 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 She requested discharge and will intake for partial hospital program admission to continue processing this loss and learn to manage current symptoms. She is able to contract for her safety and will call or return as needed. Time spent discussing smoking cessation with patient: 3 to 10 minutes Status at Discharge Functional status at discharge: independent ambulation Overall status at discharge: patient is progressing back to baseline Time Spent with Patient Time attestation: Total time spent providing and/or coordinating discharge services: 35 Time spent: Greater than 30 minutes Discharge Plan Discharge Patient Disposition: Home, Self-Care Discharge Diagnosis: delusional disorder (provisional dx); PTSD Referrals: Robinson Hastings [Other] - 12/13/21 12:00 pm (Follow-up discharge appointment with outpatient therapist after discharge from [facility] ) [facility] Partial Hospitalization Program (PHP) [Other] - Tomorrow (Referral for [facility] PHP program Patient should follow-up on referral following discharge form [facility].) NUNO CARMEN [Other] - 12/17/21 8:15 am (IN OFFICE) Discharge Medications: New prazosin 1 mg Capsule 2 mg PO BEDTIME 30 Days Qty: 60 0RF Protocol: Hold for SBP< HOLD for SBP < : 90 hydroxyzine HCl 25 mg Tablet 25 mg PO Q6H PRN (Reason: Anxiety) 30 Days Qty: 60 0RF naltrexone 50 mg Tablet 50 mg PO DAILY 30 Days Qty: 30 0RF oxcarbazepine 150 mg Tablet 150 mg PO BID 30 Days Qty: 60 0RF risperidone 2 mg Tablet 2 mg PO BEDTIME 30 Days Qty: 30 0RF trazodone 50 mg Tablet 50 mg PO BEDTIME PRN (Reason: Insomnia) 30 Days Qty: 30 0RF Discharge Orders: Discharge Order (Routine); Ordered 12/03/21 Ordered By: Arsenio Sullivan Diet: Advance to usual diet Activity on Discharge: As tolerated Stand Alone Forms: Patient Portal Discharge page, Community Support Care Plan Goals: Maintain mood and safe behaviors Take medications as prescribed Continue to pursue sobriety Practice coping skills Continue with outpatient providers and reach out to them as needed Health Concerns: Mood stability and behaviors Sobriety Plan of Treatment: Follow up with your psychiatric provider and other outpatient providers regarding above concerns Take medications as prescribed Assessment: Risk assessment at time of discharge:? Patient was interviewed prior to discharge and found to be fully oriented and without any SI or HI. Patient has insight and demonstrates good judgment in terms of wanting to pursue treatment. Patient is not in imminent risk of harm to self or others and has a safety plan that includes presenting to the closest ER or calling 911 if feeling unsafe.? Patient has been observed closely by nursing and unit staff throughout admission; patient has not engaged in any behaviors that suggest dangerousness to self or others and has demonstrated appropriate behaviors and impulse control Discharge Date/Time: 12/03/21 12:57
== END 2021-12-03 12:57 | disposition home or self-care (01) | DRG 760 ==
LOC: HO.ED 11-28 12:05 → HO.PM5 11-28 16:32
PROVIDERS: Emergency Medicine; Registered Nurse; Admitting Provider Psychiatry & Neurology Psychiatry; Emergency Provider Emergency Medicine; Visit Provider Psychiatry & Neurology Psychiatry
DX: F22 Delusional disorders (principal); R45.851 Suicidal ideations; F10.20 Alcohol dependence, uncomplicated; F17.210 Nicotine dependence, cigarettes, uncomplicated; F43.10 Post-traumatic stress disorder, unspecified; Z20.822 Contact with and (suspected) exposure to COVID-19; Z71.6 Tobacco abuse counseling; Z91.013 Allergy to seafood; Z79.899 Other long term (current) drug therapy
CPT/HCPCS: 36415; 80048; 80061; 80307; 81003; 82607; 82746; 83036; 83735; 84439; 84443; 85025; 87635; 99285; J1200; J3486; Q0163

== ENCOUNTER 2021-12-10 08:02 | Emergency (ER) | payer MEDICAID, SELFPAY ==
[2021-12-10 08:12] VITALS: RESP 16
--- NOTE | 2021-12-10 08:39 | ED_ITS ---
HPI - Psych General Chief Complaint: Psychiatric Symptoms Stated Complaint: THOUGHTS OF SI,ETOH USE Time Seen by Provider: 12/10/21 08:14 Source: patient Mode of arrival: EMS Limitations: altered mental status (Intoxicated) History of Present Illness HPI Narrative: Patient presents emergency department via EMS. Reportedly patient was making statements concern for suicidal ideations on social media. She was not brought to the Emergency Department on a Section 12. She presents very argumentative, uncooperative, and appears to be intoxicated. Making statements such as ?just kill me then?, and ?I Wanna ?. Related Data Previous Rx's Medication Instructions Recorded hydroxyzine HCl 25 mg tablet 25 mg PO Q6H PRN Anxiety 30 days 12/03/21 #60 tabs naltrexone 50 mg tablet 50 mg PO DAILY 30 days #30 tabs 12/03/21 oxcarbazepine 150 mg tablet 150 mg PO BID 30 days #60 tabs 12/03/21 prazosin 1 mg capsule 2 mg PO BEDTIME 30 days #60 caps 12/03/21 risperidone 2 mg tablet 2 mg PO BEDTIME 30 days #30 tabs 12/03/21 trazodone 50 mg tablet 50 mg PO BEDTIME PRN Insomnia 30 12/03/21 days #30 tabs Allergies Allergy/AdvReac Type Severity Reaction Status Date / Time OYSTERS Allergy Unknown UNKNOWN Uncoded 01/05/20 18:19 Review of Systems Review of Systems: Yes Unobtainable due to mental status PMFSH Past Medical History Attestation statement: The following information was validated with the patient. Source: old records reviewed Medical History Depression Knee cap dislocation PTSD (post-traumatic stress disorder) PTSD (post-traumatic stress disorder) Social History Social History Household Members: Friend(s) Housing: House Do you presently have visiting nurse or other home services: No Patient Tobacco Use Status: Current everyday Tobacco user Tobacco use type: Cigarette Cigarette Packs Per Day: 1 Cigarettes Per Day: 20.0 Years Smoked: 26 e-Cigarette/Vaping Use: Never Used Second Hand Smoke Exposure: Yes Advance Directives: No Advance Directives Information Provided: No service: No Sexual orientation: Lesbian/[place]/Homosexual Physical Exam Vital Signs: Vital Signs: Last Vital Signs Temp 97.8 F 12/10/21 08:56 Pulse 106 H 12/10/21 08:56 Resp 18 12/10/21 08:56 BP 128/77 12/10/21 08:56 Pulse Ox 99 12/10/21 08:56 O2 Del Method 12/10/21 08:56 BMI result Body Mass Index 24.3 Appearance: Alert.? Intoxicated. Oriented to person and place Eyes: Pupils equal, round and reactive to light.? Neck: Normal inspection.? Neck supple.?? CVS: Heart sounds normal. Normal heart rate and rhythm.? Pulses normal.?? Respiratory: No respiratory distress.? Lung sounds clear to auscultation bilaterally?? Abdomen: Soft and non-tender. Skin: Skin warm and dry.? Normal skin color.? Extremities: No lower extremity edema.? Neuro: Moves all extremities spontaneously. Sensation intact bilaterally. CN II- XII intact. No focal neuro deficits. Ambulates with normal steady gait. Course Course Course Narrative: Patient is a 41-year-old female with a past medical history of depression and PT SD who presents to the emergency department via EMS for ETOH and suicidal ideations. Patient placed on a Section 12 as she is clinically intoxicated and unable to make safe decisions. Making suicidal statements. Difficulty getting patient to cooperate with staff and changeover process. Security needed to be present to assist patient to room. Patient received Zyprexa IM. She is maintaining her airway, managing secretions, alert and verbal, appears in no apparent distress. Reevaluation(s) Reevaluation #1: Patient is calm, however she continues to decline having serum labs obtained or urinalysis. She is in no apparent distress. Will speak with care team regarding consultation for patient. Time: 12:56 Reevaluation #2: Patient continued to have decline labs during the day today. Appearing clinically more sober. Overall calm. Spoke with care team, who plan to meet with patient around 20:00, assuming that she had previously significantly elevated ethanol level upon arrival to the department. Will re-address serum labs at that time. Placed in physician observation pending clinical sobriety and care team evaluation. [facility] - Psych Medical Records Attestation: I reviewed the patient's medical records. Lab Data Attestation: I reviewed the patient's lab results. Labs: Lab Results 12/10/21 Range/Units 09:44 COVID-19 (ANOOP) Negative (Negative) COVID-19 Clin Com See Note Discharge Plan Discharge Clinical Impression: Acute alcohol intoxication, Suicidal ideation Patient Disposition: Still a Patient Prescriptions: No Action prazosin 1 mg Capsule 2 mg PO BEDTIME 30 Days Qty: 60 0RF Protocol: Hold for SBP< HOLD for SBP < : 90 hydroxyzine HCl 25 mg Tablet 25 mg PO Q6H PRN (Reason: Anxiety) 30 Days Qty: 60 0RF naltrexone 50 mg Tablet 50 mg PO DAILY 30 Days Qty: 30 0RF oxcarbazepine 150 mg Tablet 150 mg PO BID 30 Days Qty: 60 0RF risperidone 2 mg Tablet 2 mg PO BEDTIME 30 Days Qty: 30 0RF trazodone 50 mg Tablet 50 mg PO BEDTIME PRN (Reason: Insomnia) 30 Days Qty: 30 0RF
[2021-12-10] MEDS: OLANZapine 10 MG VIAL IM (08:54)
[2021-12-10 08:56] VITALS: BP 128/77; BP 150/95; PULSE 106; PULSE 99; RESP 18; TEMP 36.6; O2SAT 99; BMI 24.3
[2021-12-10 10:11] LABS: COVID-19 Test Negative (Negative); IDNOW Serial# 16C4AD1C
--- NOTE | 2021-12-10 12:41 | PC.NURSE ---
t/w witnessed client decline labs asked two times in a soft voice just now.
--- NOTE | 2021-12-10 23:15 | PC.NURSE ---
PATIENT REFUSED VITALS.
--- NOTE | 2021-12-10 23:25 | PC.NURSE ---
Tech attempted to obtain vital signs and pt refused. wctm.
--- NOTE | 2021-12-11 05:53 | PC.NURSE ---
t/w asked PT asked to provide urine sample and refused. wctm.
--- NOTE | 2021-12-11 06:47 | PC.NURSE ---
Patient slept through the night, no distress observed/reported, patient assessed by care team, disposition per care team is section 12 inpatient bed search, patient is not happy with her disposition, patient is refusing her labs in protest, patient is currently not on any medication, refusing vital sign assessment, will continue to monitor.
--- NOTE | 2021-12-11 07:29 | PC.NURSE ---
patient appears to remain asleep at present respirations are even and unlabored patient appears in no distress
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
== END 2021-12-11 16:44 | disposition home or self-care (01) ==
PROVIDERS: Emergency Provider Emergency Medicine
DX: F33.1 Major depressive disorder, recurrent, moderate (principal); F10.129 Alcohol abuse with intoxication, unspecified; Y90.9 Presence of alcohol in blood, level not specified; R45.851 Suicidal ideations; F17.210 Nicotine dependence, cigarettes, uncomplicated; Z20.822 Contact with and (suspected) exposure to COVID-19; Z79.899 Other long term (current) drug therapy; Z71.6 Tobacco abuse counseling
CPT/HCPCS: 87635; 96372; 99284; 99285

== ENCOUNTER 2022-10-21 19:16 | Inpatient (IN) | payer OTHER, MEDICAID, SELFPAY ==
[2022-10-21] VITALS (10 sets, daily range): BP systolic 106–148; BP diastolic 55–92; PULSE 56–116; RESP 8–24; TEMP 36.6–37.3; O2SAT 97–100; BMI 22.1
--- NOTE | 2022-10-21 19:54 | PC.NURSE ---
Pt aox4 resting at the bedside. Reports having a hx of SI and denies SI/HI at this time. Denies changing over and providing urine sample. MD aware. Pending psych consult. Pt aware of plan of care.
--- NOTE | 2022-10-21 19:57 | ED.PSYCH ---
HPI - Psych General Chief Complaint: Psychiatric Symptoms Stated Complaint: SI, ETOH Time Seen by Provider: 10/21/22 19:28 Source: patient and EMS Mode of arrival: EMS Limitations: no limitations History of Present Illness HPI Narrative: Patient history of alcohol abuse been depressed commended SI ideation to the police and evaluated by care team in field would like to evaluate in the ER requested Section 12 after arrival to the ER patient denied any SI says she never passed that come feels frustrated and intoxicated but able to ambulate in steady gait Related Data Previous Rx's Medication Instructions Recorded hydroxyzine HCl 25 mg tablet 25 mg PO Q6H PRN Anxiety 30 days 12/03/21 #60 tabs naltrexone 50 mg tablet 50 mg PO DAILY 30 days #30 tabs 12/03/21 oxcarbazepine 150 mg tablet 150 mg PO BID 30 days #60 tabs 12/03/21 prazosin 1 mg capsule 2 mg PO BEDTIME 30 days #60 caps 12/03/21 risperidone 2 mg tablet 2 mg PO BEDTIME 30 days #30 tabs 12/03/21 trazodone 50 mg tablet 50 mg PO BEDTIME PRN Insomnia 30 12/03/21 days #30 tabs Allergies Allergy/AdvReac Type Severity Reaction Status Date / Time OYSTERS Allergy Unknown UNKNOWN Uncoded 01/05/20 18:19 Review of Systems Review of Systems: Yes all other systems are reviewed and are negative PMFSH Past Medical History Medical History Depression Knee cap dislocation PTSD (post-traumatic stress disorder) PTSD (post-traumatic stress disorder) Social History Social History Household Members: Friend(s) Housing: House Do you presently have visiting nurse or other home services: No Alcohol intake: current Alcohol intake frequency: 3 or more drinks per day Alcohol type: beer Patient Tobacco Use Status: Current everyday Tobacco user Tobacco use type: Cigarette Cigarette Packs Per Day: 1 Cigarettes Per Day: 20.0 Years Smoked: 26 Smoked in Last 30 Days: No e-Cigarette/Vaping Use: Never Used Second Hand Smoke Exposure: Yes Advance Directives: No Advance Directives Information Provided: No service: No Sexual orientation: Lesbian/[place]/Homosexual Physical Exam Vital Signs: Vital Signs: Last Vital Signs Temp 97.8 F 10/21/22 20:58 Pulse 99 10/22/22 00:00 Resp 24 H 10/22/22 00:00 BP 106/55 L 10/21/22 20:58 Pulse Ox 100 10/21/22 20:58 O2 Del Method Room Air 10/21/22 20:58 BMI result Body Mass Index 22.1 Appearance: Alert. Oriented X3. No acute distress. ETOH+ Eyes: PERRLA, No Nystagmus ENT: Pharynx normal. Oral Mucosa moist Neck: Normal inspection. Neck supple. CVS: Normal heart rate and rhythm. Pulses normal. Respiratory: No respiratory distress. Equal air entry bilateral, no wheezing/rales/rhonchi Abdomen: Soft and nontender. Bowel sounds are present, no mass palpable, no CVA tenderness Skin: Skin warm and dry. Normal skin color. Normal skin turgor. Extremities: No lower extremity edema. No calf tenderness psych: Angry denies any significant depression or SI no hallucinations or delusions Neuro: Oriented X 3. No motor deficit. No sensory deficit.No cerebellar signs , cranial nerves II-XII intact Course Reevaluation(s) Reevaluation #1: Patient very agitated told care team that she been feeling depressed and wanted to kill herself for last 4 years agreed to stay , to be evaluated when sober Time: 20:42 Medications Administered Discontinued Medications Generic Name Dose Route Start Last Admin Trade Name Freq PRN Reason Stop Dose Admin Diphenhydramine HCl 50 mg 10/21/22 20:44 10/21/22 21:03 Diphenhydramine Hcl 50 Mg/Ml Vial IM 10/21/22 20:45 50 mg ONCE ONE Administration Haloperidol Lactate 5 mg 10/21/22 20:44 10/21/22 21:04 Haloperidol Lactate 5 Mg/Ml Vial IM 10/21/22 20:45 5 mg STAT STA Administration Lorazepam 2 mg 10/21/22 20:44 10/21/22 21:04 Lorazepam 2 Mg/Ml Vial IM 10/21/22 20:45 2 mg ONCE ONE Administration Medical Decision Making Medical Decision Making MDM Narrative: Patient with alcohol abuse with depression and SI ideation and statements made in front of care team patient had to be medically and physical restraints for agitation in the ER care team will evaluate the patient after patient gets sober Lab Data MDM Lab Attestation statement: I reviewed the patient's lab results. 10/21/22 20:20 10/21/22 20:20 Labs: Lab Results 10/21/22 10/21/22 10/21/22 Range/Units 20:20 20:20 20:20 WBC 4.1 L (4.8-10.8) X10*3/uL RBC 3.44 L (4.20-5.50) X10*6/uL Hgb 12.2 (12.0-16.0) g/dl Hct 34.3 L (37.0-47.0) % MCV 99.7 H (80.0-98.0) fL MCH 35.5 H (27.0-33.0) pg MCHC 35.6 H (31.0-35.0) g/dl RDW 12.6 (11.0-16.0) % Plt Count 146 L (160-400) X10*3/uL MPV 10.3 (9.4-12.3) fL Absolute Nucleated RBC 0.000 (0.0-0.012) X10*3/uL Nucleated RBC % (auto) 0.0 (0.0-0.2) /100WBC Sodium 142 (135-145) mmol/L Potassium 4.3 (3.3-5.1) mmol/L Chloride 106 (96-108) mmol/L Carbon Dioxide 21 L (22-29) mmol/L Anion Gap 19 (12-20) BUN 4 L (9-16) mg/dL Creatinine 0.60 (0.5-1.4) mg/dL Estim Creat Clear Calc 127.6 Estimated GFR > 60 Random Glucose 86 (60-115) mg/dL Calcium 9.1 (8.4-10.2) mg/dL Total Bilirubin 0.4 (0.0-1.0) mg/dL AST 46 H (5-31) U/L ALT 25 (0-31) U/L Alkaline Phosphatase 49 (39-117) U/L Total Protein 6.9 (6.5-8.0) g/dL Albumin 4.3 (3.5-5.0) g/dL Ethyl Alcohol 234 mg/dL Discharge Plan Discharge Clinical Impression: Alcohol use disorder, moderate, dependence, Suicidal ideation, Depression Patient Disposition: Still a Patient Prescriptions: No Action prazosin 1 mg Capsule 2 mg PO BEDTIME 30 Days Qty: 60 0RF Protocol: Hold for SBP< HOLD for SBP < : 90 hydroxyzine HCl 25 mg Tablet 25 mg PO Q6H PRN (Reason: Anxiety) 30 Days Qty: 60 0RF naltrexone 50 mg Tablet 50 mg PO DAILY 30 Days Qty: 30 0RF oxcarbazepine 150 mg Tablet 150 mg PO BID 30 Days Qty: 60 0RF risperidone 2 mg Tablet 2 mg PO BEDTIME 30 Days Qty: 30 0RF trazodone 50 mg Tablet 50 mg PO BEDTIME PRN (Reason: Insomnia) 30 Days Qty: 30 0RF Interventions: [place]-Suicide Risk Severity Scale Last Done: 10/21/22 19:56
--- NOTE | 2022-10-21 20:38 | PC.NURSE ---
Received called from reporting pt would section 12 by grecia Mason, Officer Tadeo stated he was not section pt, pt being here for evaluation, pt report SI to HP and EMS, Dr. Mcguire aware and request to Section 12 pt for safety.
--- NOTE | 2022-10-21 21:09 | PC.NURSE ---
Addendum entered by Laurence Luz 10/21/22 21:26: Correction: Pt medicated at 2049 not 2249 Original Note: Pt became agitated, aggressive, uncooperative and combative. Attempted to leave the facility. Security escorted pt back to the bedside where pt became increasingly aggressive and combative. Pt placed in 3 restraints. Right arm not in restraint. Unable to redirect pt. Pt made SI statments. Did not identify a plan. Pt continued to be combative and aggressive and attempted to remove restraints with the free hand. Pt then placed in 4 restraints and attempted to bite off restraints. Pt then medicated per verbal order from MD at 2249. Placed on monitor. Sinus tach on monitor with HR 111. Unable to obtain vitals as pt refused. MD aware. Will continue to monitor.
--- NOTE | 2022-10-21 21:25 | MHC.CARE ---
Pt arrived via [employer] . She presents combative and irritable. RN reported pt was brought in from community due to endorsing SI and believes to be intoxicated. Pt refuses to engage with this clinician. She made several suicidal statements, I have been trying to kill myself for four years. I have to go. Why can't you treat me like one of you. I want to kill myself . Provider requested medical and physical restraints. Pt will be assessed by CARE TEAM, once medically cleared.
--- NOTE | 2022-10-21 22:00 | PC.NURSE ---
Pts aggressive behavior decreased. Noted to be calm and cooperative at the bedside. RLE restraint removed. Radial pulse present. +CMS, able to move extremity with no difficulty. Will continue to monitor and reassess to remove other restraints. MD aware.
--- NOTE | 2022-10-21 22:05 | PC.NURSE ---
LLE restraint removed. Pedal pulse present. +CMS. Pt able to move extremity with no pain or difficulty. Will continue to reassess to remove other restraints. Pt attempting to remove hand restraint. Stopped with direction. Unable to obtain vitals at this time. aware.
--- NOTE | 2022-10-21 22:20 | PC.NURSE ---
Pt aox4. Behavior noted to be calm and cooperative. RUE restraint removed with no pain or difficulty. Radial pulse present, +CMS. No bruising or injury noted. MD diaz.
--- NOTE | 2022-10-21 22:25 | PC.NURSE ---
Pt aox4 resting, calm and cooperative at the bedside. Agrees to remain calm and cooperative once all restraints are removed. LUE restraint removed with no pain or difficulty. Radial pulse present, +CMS. No injury or bruising noted. Pt able to move all extremities with no difficulty. Pt aware of plan of care. Will continue to monitor. Unable to obtain full set of vitals at this time as pt declines.
[2022-10-22] VITALS: PULSE 99; RESP 24
--- NOTE | 2022-10-22 00:35 | PC.NURSE ---
Spoke with Rodolfo from the Care Team who states pt will be seen in the am. Pt resting at the bedside calm and cooperative. Updated on plan of care. Apple juice given as pt is unable to provide a urine sample at this time. 1:1 sitter at bedside. Will continue to monitor.
--- NOTE | 2022-10-22 02:04 | PC.NURSE ---
Pt sleeping at the bedside in no apparent distress. Breaths are even regular and unlabored with equal chest rises. RR 24. Sinus tach on monitor with HR 112. Pending care team eval. Will continue to monitor.
[2022-10-22 02:54] VITALS: PULSE 112; RESP 18
--- NOTE | 2022-10-22 03:21 | PC.NURSE ---
Pt calm and cooperative, resting at the bedside in no apparent distress. Denies SI/HI at this time. Agreed to change attire and provided urine sample. Urine sent to the lab. Aware of plan of care. Will continue to monitor.
[2022-10-22 04:29] VITALS: BP 138/80; PULSE 104; RESP 16; TEMP 37.2; O2SAT 95
--- NOTE | 2022-10-22 04:33 | PC.NURSE ---
Pt aox4 resting at the bedside in no apparent distress. Calm and cooperative. Food and liquid provided as requester per pt. VSS. Sinus tach on monitor with HR 104. aware.
--- NOTE | 2022-10-22 05:26 | PC.NURSE ---
Pt reports not taking any medications at this time.
--- NOTE | 2022-10-22 06:40 | PC.NURSE ---
Patient just got moved from main ED, S/P chemical and physical restraint, awaiting care team evaluation, currently not on any medication, coherent & sober, behavior non concerning, VSS, labs completed/resulted, section 12 for SI, will continue to monitor
[2022-10-22 17:38] VITALS: BMI 21.7
[2022-10-22 17:39] VITALS: BP 129/76; PULSE 104; RESP 16; TEMP 36.6; O2SAT 97
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
[2022-10-22 20:24] VITALS: BP 163/88; PULSE 103; TEMP 36.8; O2SAT 97
[2022-10-22 23:56] VITALS: BP 139/68; PULSE 94; O2SAT 99
[2022-10-23 04:05] VITALS: BP 108/78; PULSE 102; O2SAT 99
[2022-10-23 07:00] VITALS: BMI 22.3
[2022-10-23 08:00] VITALS: BP 126/86; PULSE 82; RESP 16; TEMP 36.2; O2SAT 100
[2022-10-23 08:49] LABS: Estimated Average Glucose 82 mg/dL; Hemoglobin A1c % 4.5 %
[2022-10-23 09:38] LABS: Alanine Aminotransferase 29 U/L (0-31); Albumin Level 4.2 g/dL (3.5-5.0); Alkaline Phosphatase 53 U/L (39-117); Anion Gap 14 (12-20); Aspartate Amino Transferase 53 U/L (5-31); Bilirubin Total 1.1 mg/dL (0.0-1.0); Blood Urea Nitrogen 5 mg/dL (9-16); Calcium 9.5 mg/dL (8.4-10.2); Carbon Dioxide 24 mmol/L (22-29); Chloride 97 mmol/L (96-108); Cholesterol 221 mg/dL; Estimated Glomerular Filt Rate > 60; Glucose Fasting 122 mg/dL (60-99); HDL Cholesterol 135 mg/dL; LDL Cholesterol Calculated 68 mg/dl; Potassium 4.1 mmol/L (3.3-5.1); Sodium 131 mmol/L (135-145); Total Protein 6.9 g/dL (6.5-8.0); Triglycerides 94 mg/dL
[2022-10-23 09:59] LABS: Free T4 (Free Thyroxine) 0.94 ng/dL (0.71-1.85); Thyroid Stimulating Hormone 3.63 uIU/mL (0.32-4.0)
[2022-10-23 10:02] LABS: Folate 14.8 ng/mL (> or = 4.0); Vitamin B12 287 pg/mL (200-900)
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
[2022-10-23 19:40] VITALS: BP 118/68; PULSE 94; RESP 18; TEMP 37; O2SAT 99
[2022-10-24 06:00] VITALS: BP 140/80; PULSE 93; RESP 18; TEMP 36.3; O2SAT 100
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
== END 2022-10-24 10:50 | disposition home or self-care (01) | DRG 752 ==
LOC: HO.ED 10-22 06:03 → HO.PADLT16 10-22 15:51
PROVIDERS: Admitting Provider Psychiatry & Neurology Psychiatry; Emergency Provider Internal Medicine; Visit Provider Psychiatry & Neurology Psychiatry
DX: F60.3 Borderline personality disorder (principal); R45.851 Suicidal ideations; F43.10 Post-traumatic stress disorder, unspecified; F17.210 Nicotine dependence, cigarettes, uncomplicated; Z71.6 Tobacco abuse counseling; Z20.822 Contact with and (suspected) exposure to COVID-19; Y90.7 Blood alcohol level of 200-239 mg/100 ml; F10.129 Alcohol abuse with intoxication, unspecified
CPT/HCPCS: 36415; 80053; 80061; 80307; 81001; 82607; 82746; 83036; 84439; 84443; 85027; 87086; 87635; 93005; 99285; J1200; J2060; S9485